=== PATIENT | female | born 2000 | race Caucasian/White ===

== ENCOUNTER 2022-12-15 01:19 | Inpatient (IN) | payer MEDICAID ==
[~2022-12-15] VITALS: Ht 157.5 cm; Wt 61.7 kg
[2022-12-15] MEDS ORDERED: HALOPERIDOL 5 MG TABLET PO PRN (04:00)
[2022-12-15] MEDS ORDERED: ZOLPIDEM TARTRATE 10 MG TABLET PO PRN (04:00)
[2022-12-15] MEDS ORDERED: LORazepam 2 MG TABLET PO PRN (04:00)
[2022-12-15 05:09] VITALS: BP 109/69; PULSE 51; RESP 18; TEMP 97; O2SAT 96
[2022-12-15] MEDS ORDERED: PNEUMOCOCCAL VACCINE POLYVALENT 0.5 ML VIAL [PPSV23] IM. ONE (06:30)
[2022-12-15] MEDS ORDERED: SERT-439 PO (08:36)
[2022-12-15 08:40] VITALS: RESP 16
[2022-12-15] MEDS ORDERED: ACETAMINOPHEN 325 MG TABLET PO PRN (09:00)
[2022-12-15] MEDS ORDERED: DOCUSATE SODIUM 100 MG CAPSULE PO PRN (09:00)
[2022-12-15] MEDS ORDERED: MAGNESIUM HYDROXIDE SUSPENSION 30 ML UDCUP PO PRN (09:00)
[2022-12-15] MEDS ORDERED: PETROLATUM,WHITE 28 GM JELLY TP PRN (09:00)
[2022-12-15] MEDS ORDERED: GuaiFENesin/D-METHORPHAN [SUGAR-FREE] 200-20MG/10 ML SYRUP UDCUP PO PRN (09:00)
[2022-12-15] MEDS ORDERED: MAG HYDROX/AL HYDROX/SIMETH ES 30 ML SUSPENSION UDCUP PO PRN (09:00)
[2022-12-15] MEDS ORDERED: CloNIDine HCL 0.1 MG TABLET PO PRN (09:00)
[2022-12-15] MEDS ORDERED: LOPERAMIDE HCL 2 MG CAPSULE PO PRN (09:00)
[2022-12-15] MEDS: SERTRALINE HCL 50 MG TABLET PO SCH (09:00)
[2022-12-15] MEDS ORDERED: ALBUTEROL SULFATE HFA 90 MCG/PUFF 8 GM INHALER IH PRN (09:00)
[2022-12-15] MEDS ORDERED: NICOTINE 14 MG/24 HOUR PATCH TD PRN (09:00)
[2022-12-15] MEDS ORDERED: ONDANSETRON HCL 4 MG TABLET PO PRN (09:00)
[2022-12-15 20:14] VITALS: RESP 17
[2022-12-15] MEDS: IBUPROFEN 400 MG TABLET PO PRN (20:14)
[2022-12-15 21:14] VITALS: RESP 17
[2022-12-16 07:51] LABS: BASOPHILS % (AUTO) 0.6 % (0.0-2.0); EOSINOPHILS % (AUTO) 5.7 % (1.0-6.0); HEMATOCRIT 38.8 % (36-46); HEMOGLOBIN 12.8 g/dL (12.0-16.0); LYMPHOCYTES # (AUTO) 2.5 K/uL (1.0-4.8); MEAN CORPUSCULAR HEMOGLOBIN 29.7 pg (26.0-34.0); MEAN CORPUSCULAR VOLUME 90 fL (80-100); MONOCYTES # (AUTO) 0.6 K/uL (0.1-1.0); MONOCYTES % (AUTO) 8.6 % (2.0-9.0); NEUTROPHILS # (AUTO) 3.5 K/uL (1.8-7.7); NEUTROPHILS % (AUTO) 49.1 % (40.0-70.0); PLATELET COUNT (AUTO) 265 K/uL (150-450); RED BLOOD CELL COUNT(AUTO) 4.32 MIL/uL (4.00-5.20); RED CELL DISTRIBUTION WIDTH 13.7 % (11.5-14.5)
[2022-12-16] MEDS: SERTRALINE HCL 50 MG TABLET PO SCH (08:14)
[2022-12-16 08:19] VITALS: BP 122/74; PULSE 78; RESP 16; TEMP 97.9; O2SAT 99
[2022-12-16 08:19] LABS: ALANINE AMINOTRANSFERASE 13 U/L (12-78); ALBUMIN 3.2 g/dL (3.4-5.0); ALKALINE PHOSPHATASE 80 U/L (46-116); ANION GAP 9 mmol/L (8-16); ASPARTATE AMINOTRANSFERASE 15 U/L (15-37); BILIRUBIN,TOTAL 0.6 mg/dL (0.1-1.0); CALCIUM, TOTAL 8.7 mg/dL (8.8-10.5); CARBON DIOXIDE 27 mmol/L (22-29); CHLORIDE 104 mmol/L (98-107); CHOL/HDL RATIO 2.2 (3.9-5.7); CHOLESTEROL 128 mg/dL (131-200); CREATININE 0.64 mg/dL (0.60-1.30); GLOMERULAR FILTR. RATE CALC > 60 mL/min (>60); GLUCOSE,RANDOM 88 mg/dL (70-110); HCG,QUANTITATIVE < 1 mIU/mL (0-6); HDL CHOLESTEROL 58 mg/dL (40-60); LDL CHOL (CALC.) 59 mg/dL (0-130); POTASSIUM 4.1 mmol/L (3.5-5.1); SODIUM SERUM 140 mmol/L (136-145); THYROID STIMULATING HORMONE 1.47 uIU/mL (0.36-3.74); TOTAL PROTEIN, SERUM 6.7 g/dL (6.4-8.2); TRIGLYCERIDES 56 mg/dL (15-150)
[2022-12-16 08:21] VITALS: RESP 16
[2022-12-16] MEDS: IBUPROFEN 400 MG TABLET PO PRN (08:21)
[2022-12-16 09:21] VITALS: RESP 18
[2022-12-16 17:20] VITALS: BP 117/70; PULSE 72; RESP 17; TEMP 98; O2SAT 98
[2022-12-16 20:42] VITALS: BP 109/60; PULSE 64; RESP 18; TEMP 97.8; O2SAT 98
[2022-12-17] MEDS: SERTRALINE HCL 50 MG TABLET PO SCH ×3 (08:12→09:05)
[2022-12-17 08:22] VITALS: BP 109/66; PULSE 65; RESP 16; TEMP 98.6
[2022-12-17 20:12] VITALS: BP 113/71; PULSE 65; RESP 18; TEMP 97.5; O2SAT 97
[2022-12-18] MEDS: SERTRALINE HCL 50 MG TABLET PO SCH (08:31)
[2022-12-18 08:53] VITALS: BP 100/64; PULSE 59; RESP 16; TEMP 97.7; O2SAT 98
[2022-12-18] MEDS ORDERED: SERT-439 PO (10:55)
== END 2022-12-18 14:00 | disposition home or self-care (01) | DRG 751 ==
LOC: B3A 03:53 → B2S 12-16 20:35
PROVIDERS: ADMIT Psychiatry & Neurology Psychiatry; ATTEND Psychiatry & Neurology Psychiatry
PROC: 3E0234Z Introduction of Serum, Toxoid and Vaccine into Muscle, Percutaneous Approach (ICD-10-PCS; principal; 2022-12-15)
DX: F33.2 Major depressive disorder, recurrent severe without psychotic features (principal); F10.10 Alcohol abuse, uncomplicated; F41.9 Anxiety disorder, unspecified; R10.13 Epigastric pain; T54.92XA Toxic effect of unspecified corrosive substance, intentional self-harm, initial encounter; G47.00 Insomnia, unspecified; Z79.899 Other long term (current) drug therapy; Z23 Encounter for immunization; Z91.018 Allergy to other foods; Y92.89 Other specified places as the place of occurrence of the external cause; Z91.51 Personal history of suicidal behavior
CPT/HCPCS: 80053; 80061; 83036; 84436; 84439; 84443; 84702; 85025; 90732; G0480

== ENCOUNTER 2022-12-16 12:01 | Emergency (ER) | payer MEDICAID, OTHER ==
[~2022-12-16] VITALS: Ht 157.5 cm; Wt 60.9 kg
[~2022-12-16 12:01] MED LIST: SERT-439 PO
[2022-12-16 14:04] VITALS: TEMP 97.9
[2022-12-16 15:25] VITALS: BP 111/60; PULSE 60; RESP 18
== END 2022-12-16 16:52 | disposition home or self-care (01) ==
LOC: EMS 12:01
DX: S00.83XA Contusion of other part of head, initial encounter (principal); F32.9 Major depressive disorder, single episode, unspecified; Z91.018 Allergy to other foods; Y04.8XXA Assault by other bodily force, initial encounter; Y93.89 Activity, other specified; Y92.89 Other specified places as the place of occurrence of the external cause; Y99.8 Other external cause status
CPT/HCPCS: 99285; Z7502